=== PATIENT | female | born 1930 | race Caucasian/White ===

== ENCOUNTER 2016-11-02 20:41 | Emergency (ER) | payer MEDICARE, OTHER ==
[~2016-11-02] VITALS: Ht 170.2 cm; Wt 72.0 kg
[2016-11-02 20:58] VITALS: BP 136/74; PULSE 74; RESP 16; O2SAT 98
--- NOTE | 2016-11-02 22:06 | ED.REPORT ---
HPI-General Illness Date of Service November 02, 2016 ED Provider: Marlon Mclain MD Pt is an 86 y/o female w/ a hx of dementia presenting to the ED with her daughter c/o increasing confusion over the past 10 days. Today the patient packed her bags and left the house, walking down the street. She doesn't feel like her house is her home anymore. She lives alone. The daughter is concerned about a possible UTI. Pt denies dysuria, urinary frequency, cough, SOB, sputum, CP, nausea, abdominal pain, vomiting, diarrhea, change in baseline peripheral numbness, weakness, fever, chills, rash. Nursing Notes Stated Complaint: INCREASED CONFUSION, POSSIBLE UTI Chief Complaint: Neuro Symptoms/ Deficits Nursing Notes Reviewed: Yes Allergies: Coded Allergies: acetaminophen (Verified Allergy, Unknown, 11/02/16) hydrocodone (Verified Allergy, Unknown, 11/02/16) Scheduled Cefuroxime Axetil (Cefuroxime) 500 Mg Tablet 500 MG PO BID General Time Seen by MD: 22:05 Chief Complaint Other (confusion) Hx Obtained From: Patient, Daughter Arrived By: Walk-in Sudden in Onset?: No Onset Occurred: More than a week ago... (10 days) Symptom Duration: Since onset Severity: Current: No pain currently Severity: Maximum: No pain Past Medical History Past Medical History Hx shingles causing residual peripheral neuropathy Dementia Osteoarthritis Past Surgical History None reported Smoking History Unknown if Ever Smoker Social History Drug Use: Denies drug use Ambulatory Status Independent Review of Systems Full Review of Systems Constitutional: Denies: Chills, Fever Respiratory: Denies: Non-productive cough, Shortness of breath Cardiovascular: Denies: Chest pain, Dyspnea on exertion GI: Denies: Abdominal pain, Diarrhea, Nausea, Vomiting Female: Denies: Dysuria, Urinary frequency Skin: Denies Itching, Denies Rash Neurologic: Reports: Confusion, Denies: Abnormal movement, Change LOC, Focal weakness, Headache, Numbness, Seizure, Shaking, Slurred speech, Syncope, Unable to speak, Vision change, Weakness Physical Exam None reported Vital Signs Vital Signs Date Time Temp Pulse Resp B/P Pulse Ox O2 Delivery O2 Flow Rate FiO2 11/02/16 23:46 68 18 123/71 96 Room Air 11/02/16 23:20 68 18 123/71 96 Room Air 11/02/16 20:58 36.4 74 16 136/74 98 Initial VS: Reviewed, Vital signs normal Head / Eyes: Atraumatic, Normocephalic, PERRL ENT: Mucous membranes moist, Conjunctiva normal, No scleral icterus Respiratory: Breath sounds normal, Clear to auscultation, No respiratory distress Cardiovascular: Regular rate & rhythm, Heart sounds normal, Intact distal pulses Abdomen / GI: Soft, Non-tender, No guarding, No rebound, No distention Extremities: Vascular intact, Neuro intact, No swelling, No tenderness Psychiatric: Mood/affect normal, Behavior normal General/Constitutional: Awake, Alert, No acute distress, Well appearing, Well hydrated, Well nourished, Cooperative, Not toxic appearing Neck: Atraumatic, Supple, No meningismus, Full range of motion, No JVD Skin: Atraumatic, Color NL, No rash, Warm, Dry, Intact, Turgor NL, No swelling Neurologic: Oriented X3, Speech NL, No motor deficits, No sensory deficits Mildly demented Interpretation & Diagnostics Lab Results Interpretation Result Diagram: 11/02/16 2219 11/02/16 221 Test 11/02/16 22:19 11/02/16 22:48 White Blood Count 6.0th/mm3 (3.8-10.1) Red Blood Count 4.08mil/mm3 (3.90-5.20) Hemoglobin 12.6g/dL (12.0-15.6) Hematocrit 38.3% (35.0-46.0) Mean Corpuscular Volume 93.9fL (81-100) Mean Corpuscular Hemoglobin 30.9pg (27.0-35.0) Mean Corpuscular Hemoglobin Concent 32.9% (32.0-37.0) Red Cell Distribution Width 13.0% (12.3-15.4) Platelet Count 177bil/L (150-400) Neutrophils (%) (Auto) 66.8% (40-74) Lymphocytes (%) (Auto) 20.9% (14-46) Monocytes (%) (Auto) 10.2% (4-12) Eosinophils (%) (Auto) 1.3% (0-5) Basophils (%) (Auto) 0.3% (0-3) Sodium Level 142mEq/L (134-144) Potassium Level 4.0mEq/L (3.5-5.2) Chloride Level 104mEq/L (97-108) Carbon Dioxide Level 24mmol/L (18-29) Blood Urea Nitrogen 17mg/dL (8-27) Creatinine 0.81mg/dL (0.57-1.00) Estimat Glomerular Filtration Rate 96mL/min (>59) Glucose Level 141mg/dL (60-99) Calcium Level 9.3mg/dL (8.5-10.1) Magnesium Level 1.9mg/dL (1.6-2.6) Total Bilirubin 0.3mg/dL (0.0-1.2) Aspartate Amino Transf (AST/SGOT) 20U/L (0-50) Alanine Aminotransferase (ALT/SGPT) 14U/L (0-32) Alkaline Phosphatase 84U/L (25-165) Ammonia 30ug/dL (18-53) Total Protein 6.3g/dL (6.4-8.4) Albumin 3.9g/dL (3.4-5.0) Urine Color Dark yellow (YELLOW) Urine Appearance Clear (CLEAR,HAZY) Urine pH 5.5 (5.0-8.0) Urine Specific [place] 1.030 (1.003-1.035) Urine Protein Negativemg/dL (NEG,TRACE) Urine Glucose (UA) Negativemg/dL (NEGATIVE) Urine Ketones Negativemg/dL (NEGATIVE) Urine Occult Blood Negative (NEGATIVE) Urine Nitrite Negative (NEGATIVE) Urine Bilirubin Negative (NEGATIVE) Urine Urobilinogen Normalmg/dL (NORMAL) Urine Leukocyte Esterase Small (NEGATIVE) Urine RBC 0-2/hpf (0-2) Urine WBC 11-50/hpf (0-5) Urine Epithelial Cells Few/hpf (NONE-MOD) Urine Crystals None seen (NONE SEEN) Urine Bacteria Few/hpf (NONE-FEW) Urine Hyaline Casts None/lpf (NONE) Urine Granular Casts None seen (NONE SEEN) Urine Waxy Casts None seen (NONE SEEN) Urine Red Blood Cell Casts None seen (NONE SEEN) Urine White Blood Cell Casts None seen (NONE SEEN) Urine Mucus Present (None Seen) Urine Trichomonas None seen (NONE SEEN) Urine Yeast None (NONE SEEN) Urinalysis Comment None Urine Culture Reflexed Indicated Re-Eval/Medical Decision Med Decision/Clinical Course 86-year-old with underlying progressive dementia, exhibited worsening signs of dementia today. This is been associated with urinary tract infection in the past, and indeed, there is urinary tract infection by UA. Begun with Ceftin for a five day course. Follow-up with PCP. Discharged in stable condition. Time of Eval: 23:22 Re-Evaluation/Progress Note: Pt rechecked. Informed pt and family of likely UTI. Informed pt of plan for treatment. Pt understands and agrees with plan for treatment. F/U instructions and RTER warnings given. All questions addressed. Counseled Regarding: Diagnosis, Lab results, Need for follow-up, When/why to return to ED Discharge & Departure Primary Impression: UTI (urinary tract infection) Urinary tract infection type: site unspecified Hematuria presence: without hematuria Qualified Code: N39.0 - Urinary tract infection, site not specified Additional Impressions: Dementia Dementia type: unspecified type Dementia behavioral disturbance: without behavioral disturbance Qualified Code: F03.90 - Unspecified dementia without behavioral disturbance Altered mental status Altered mental status type: unspecified Qualified Code: R41.82 - Altered mental status, unspecified Disposition: Home Discharge Condition All VS Reviewed: Yes Condition: Stable Patient Instructions: Urinary Tract Infection in Women (ED) Additional Instructions: Ceftin twice daily for five days Follow-up with your doctor in the office. Return if any immediate issues. Referrals: OTHER,PHYSICIAN (PCP) Scribe Attestation Portions of this note were transcribed by Antonio Mckinney. I, Dr. Mclain personally performed the history, physical exam and medical decision-making; I reviewed and confirmed the accuracy of the information in the transcribed note. Signed by Venita Howell, 11/02/16 - 2214 Marlon Mclain MD November 02, 2016 22:06 ANTONIO MCKINNEY November 02, 2016 22:13
[2016-11-02 22:31] LABS: BASOPHILS % (AUTO) 0.3 % (0-3); EOSINOPHILS % (AUTO) 1.3 % (0-5); MONOCYTES % (AUTO) 10.2 % (4-12); Mean Corpuscular Hemoglobin 30.9 pg (27.0-35.0); Mean Corpuscular Volume 93.9 fL (81-100); NEUTROPHILS % (AUTO) 66.8 % (40-74); Platelet Count 177 bil/L (150-400)
[2016-11-02 22:55] LABS: Magnesium 1.9 mg/dL (1.6-2.6)
[2016-11-02 23:08] LABS: APPEARANCE,URINE CLEAR (CLEAR,HAZY); COLOR,URINE DARK YELLOW (YELLOW); OCCULT BLOOD,URINE NEGATIVE (NEGATIVE); PH,URINE 5.5 (5.0-8.0); UROBILINOGEN,URINE NORMAL (NORMAL)
[2016-11-02 23:20] VITALS: BP 123/71; PULSE 68; RESP 18; O2SAT 96
[2016-11-02] MEDS ORDERED: CEFU500T61 PO (23:25)
[2016-11-02 23:46] VITALS: BP 123/71; PULSE 68; RESP 18; O2SAT 96
== END 2016-11-02 23:47 | disposition home or self-care (01) ==
LOC: SED 20:41
DX: N39.0 Urinary tract infection, site not specified (principal); F03.90 Unspecified dementia, unspecified severity, without behavioral disturbance, psychotic disturbance, mood disturbance, and anxiety; R41.82 Altered mental status, unspecified; Z88.5 Allergy status to narcotic agent; Z88.6 Allergy status to analgesic agent